=== PATIENT | male | born 1960 | race Caucasian/White ===

== ENCOUNTER 2020-12-12 10:58 | Day surgery (SDC) | payer MEDICARE, MEDICAID ==
[~2020-12-12] VITALS: Ht 177.8 cm; Wt 88.6 kg
[~2020-12-12 10:58] MED LIST: ASPIRIN 81 MG CHEWABLE TABLET PO ONE; DIAZEPAM 5 MG TABLET PO ONE; DiphenhydrAMINE HCL 50 MG CAPSULE PO ONE; SODIUM CHLORIDE 0.9% 1,000 ML IV ONE
[2020-12-12] MEDS ORDERED: SODIUM CHLORIDE 0.9% 1,000 ML ONE (11:12)
[2020-12-12] MEDS ORDERED: CELE200 PO (12:31)
[2020-12-12] MEDS ORDERED: TRAM50TA4 PO (12:31)
[2020-12-12] MEDS ORDERED: GABA-1181 PO (12:31)
[2020-12-12] MEDS ORDERED: OMEP20 PO (12:31)
[2020-12-12] MEDS ORDERED: CARV3 PO (12:31)
[2020-12-12] MEDS ORDERED: ASPI-1450 PO (12:31)
[2020-12-12] MEDS ORDERED: ASPIRIN 81 MG CHEWABLE TABLET ONE (12:48)
[2020-12-12] MEDS ORDERED: DiphenhydrAMINE HCL 50 MG CAPSULE ONE (12:48)
[2020-12-12] MEDS ORDERED: DIAZEPAM 5 MG TABLET ONE (12:48)
[2020-12-12] MEDS ORDERED: ACETAMINOPHEN 325 MG TABLET ONE (12:48)
[2020-12-12] MEDS ORDERED: LIDOCAINE/PF 1% 30 ML VIAL ONE (13:36)
[2020-12-12] MEDS ORDERED: IOHEXOL 300 MG/ML 100 ML VIAL ONE (13:36)
[2020-12-12] MEDS ORDERED: IOHEXOL 300 MG/ML 150 ML VIAL ONE (13:36)
[2020-12-12] MEDS ORDERED: SODIUM BICARBONATE 50 MEQ/50 ML VIAL ONE (13:36)
[2020-12-12] MEDS ORDERED: IOHEXOL 300 MG/ML 50 ML VIAL ONE (13:36)
[2020-12-12] MEDS ORDERED: HEPARIN SODIUM 1000 UNITS/NS 1,000 ML ONE (13:36)
[2020-12-12] MEDS ORDERED: MIDAZOLAM HCL 2 MG/2 ML VIAL ONE ×2 (14:21→14:32)
[2020-12-12] MEDS ORDERED: FentaNYL CITRATE PF 100 MCG/2 ML VIAL ONE ×2 (14:21→14:32)
[2020-12-12 14:22] VITALS: BP 113/66
[2020-12-12] MEDS ORDERED: LIDOCAINE 1% 30 ML/SOD BICARB 8.4% 4 ML SQ ONE (15:00)
[2020-12-12] MEDS ORDERED: HEPARIN SODIUM 1000 UNITS/NS 1,000 ML IARTER ONE (15:00)
[2020-12-12] MEDS ORDERED: FentaNYL CITRATE PF 100 MCG/2 ML VIAL IVP ONE ×3 (15:00)
[2020-12-12] MEDS ORDERED: IOHEXOL 300 MG/ML 150 ML VIAL IARTER ONE (15:00)
[2020-12-12] MEDS ORDERED: MIDAZOLAM HCL 2 MG/2 ML VIAL IVP ONE ×3 (15:00)
[2020-12-12 15:12] VITALS: BP 117/65
[2020-12-12] MEDS ORDERED: SACUBITRIL/VALSARTAN 24-26 MG TABLET PO ONE (15:30)
== END 2020-12-12 18:00 | disposition home or self-care (01) ==
LOC: CATHLAB 10:58
PROVIDERS: ATTEND Internal Medicine Interventional Cardiology
DX: R94.39 Abnormal result of other cardiovascular function study (principal); I42.9 Cardiomyopathy, unspecified; I44.7 Left bundle-branch block, unspecified; Z98.890 Other specified postprocedural states; G89.29 Other chronic pain; Z79.899 Other long term (current) drug therapy
CPT/HCPCS: 93005; 93458; 99152; A9575; C1760; J1644; J2250; J3010; J3490 ×2; J7030; Q9967